=== PATIENT | female | born 1965 | race Caucasian/White ===

== ENCOUNTER 2019-10-31 07:49 | Outpatient (CLI) | payer OTHER, SELFPAY ==
[2019-10-31 10:02] LABS: Free T4 Free Thyroxine 1.36 ng/mL (0.78-2.19)
== END 2019-10-31 07:50 | disposition home or self-care (01) ==
PROVIDERS: PCP Obstetrics & Gynecology; Visit Provider Obstetrics & Gynecology
DX: E03.9 Hypothyroidism, unspecified (principal)
CPT/HCPCS: 36415; 84439; 84443

== ENCOUNTER 2019-11-21 13:34 | Outpatient (CLI) | payer OTHER, SELFPAY ==
[2019-11-21 14:50] LABS: Albumin Level 4.6 g/dL (3.5-5.1); Blood Urea Nitrogen 31 mg/dL (7-17); Calcium 9.7 mg/dL (8.4-10.2); Carbon Dioxide 25 mmol/L (22-30); Chloride 105 mmol/L (98-107); Estimated Glomerular Filt Rate 17; Glucose 89 mg/dL (65-105); Phosphorus 4.2 mg/dL (2.5-4.5); Potassium 4.1 mmol/L (3.4-5.0); Sodium 139 mmol/L (137-145)
[2019-11-21 14:51] LABS: Add Urine Microscopic? YES; Appearance Urine Clear (Clear); Bacteria Urine Trace /hpf; Bilirubin Urine Negative (Negative); Blood Urine 3+ (Negative); Color Urine Amber (Yellow); Glucose Urine UA Negative (Negative); Ketones Urine Negative (Negative); Leukocyte Esterase Ur Negative LEU/UL (NEGATIVE); Mucus Urine Rare /lpf; Nitrate Urine Positive (Negative); Protein Urine 1+ mg/dL (Negative); RBC Urine 21-50 /hpf (0-2); Specific Grav Ur 1.013 (1.001-1.035); Squamous Epithelial Cell Urine Few /hpf (Few)
[2019-11-21 15:52] LABS: Creatinine Urine 92.2 mg/dL; Total Protein Urine Random 21 mg/dL
== END 2019-11-21 13:35 | disposition home or self-care (01) ==
PROVIDERS: PCP Obstetrics & Gynecology; Visit Provider Internal Medicine Nephrology
DX: N18.3 Chronic kidney disease, stage 3 (moderate) (principal)
CPT/HCPCS: 36415; 80069; 81001; 82570; 84156

== ENCOUNTER 2019-11-24 10:31 | Emergency (ER) | payer OTHER, SELFPAY ==
--- NOTE | ~2019-11-24 | CT_ITS ---
EXAMINATION: CT abdomen pelvis wo con DATE: 11/24/2019 12:41 INDICATION: Right flank pain TECHNIQUE: Computed tomography (CT) of the abdomen and pelvis was performed without intravenous contr ast. The dose-length product (DLP) was 561.42 mGy-cm. Automated exposure control and iterative recons truction technique were employed. COMPARISON: None FINDINGS: The lung bases are clear. The heart size is normal. The liver, spleen, pancreas, gallbladde r, and adrenal glands are normal. There is moderate atrophy of the left kidney. There is mild right h ydroureteronephrosis continuing to the level of the pelvis. No definite stone or stricture is identif ied. No pathologically enlarged abdominal or pelvic lymph nodes are identified. There is no free intr aperitoneal gas or evidence of bowel obstruction. There is mild lumbar spondylosis. IMPRESSION: 1. Mild right hydroureteronephrosis without definite stone or stricture identified. Finding could ref lect recent passage of a stone. Reviewed, dictated and finalized at location A. IMPRESSION: 1. Mild right hydroureteronephrosis without definite stone or stricture identif ied. Finding could reflect recent passage of a stone.
[2019-11-24 10:49] VITALS: BP 129/88; PULSE 103; RESP 21; TEMP 37.3; O2SAT 100
--- NOTE | 2019-11-24 11:57 | ED.ABDPAIN ---
HPI - Abdominal Pain General Chief Complaint: Abdominal Pain <JOSE Cantu Last Filed: 11/24/19 14:20> Stated Complaint: kidney infection <JOSE Cantu Last Filed: 11/24/19 14:20> Time Seen by Provider: 11/24/19 11:08 <JOSE Cantu Last Filed: 11/24/19 14:20> Source: patient <JOSE Cantu Last Filed: 11/24/19 14:20> Mode of arrival: ambulatory <JOSE Cantu Last Filed: 11/24/19 14:20> Limitations: no limitations <JOSE Cantu Last Filed: 11/24/19 14:20> History of Present Illness HPI narrative: This is a 54-year-old female that presents emergency department for right flank pain x1 week. Reports constant dull pain. Reports she was started on cephalexin by her cupola melter. She has finished this medication. Was also taking phenazopyridine. Did report some mild urinary discomfort initially. This has resolved. Patient has continued to have right flank pain. She talked to her flame cutter who ordered some outpatient labs. Was told when she got the results that she needs to come to the emergency department as her kidney function is worse than normal. Reports only the right kidney functions. Does report her urine has been orange. She is taking Azo though. Denies abdominal pain, nausea, or vomiting. <JOSE Cantu Last Filed: 11/24/19 14:20> Related Data Home Medications: Home Medications Medication Instructions Recorded Confirmed levothyroxine 11/24/19 phenazopyridine 11/24/19 <JOSE Cantu Last Filed: 11/24/19 14:20> Allergies/Adverse Reactions: Allergies Allergy/AdvReac Type Severity Reaction Status Date / Time morphine Allergy Unknown Itching Verified 11/24/19 11:11 <JOSE Cantu Last Filed: 11/24/19 14:20> Review of Systems Review of Systems: Narrative: CONSTITUTIONAL: Denies fever GASTROINTESTINAL: Denies abdominal pain, nausea, vomiting GENITOURINARY: Reports dysuria and hematuria. MUSCULOSKELETAL: Reports back pain <Dari Morrow PA-C - Last Filed: 11/24/19 14:20> All systems reviewed & are unremarkable except as noted in HPI and below <Dari Morrow PA-C - Last Filed: 11/24/19 14:20> PMFSH Past Medical History Medical History: Medical History (Updated 11/24/19 @ 14:19 by Dari Morrow PA-C) History of chronic kidney disease History of hypothyroidism <Dari Morrow PA-C - Last Filed: 11/24/19 14:20> Family History Family History: Family History (Updated 06/12/15 @ 10:07 by DOCTOR UNKNOWN) Other Cerebrovascular accident Family history of kidney disease <Dari Morrow PA-C - Last Filed: 11/24/19 14:20> Social History Social History: Social History Smoking status: Never smoker Alcohol intake: current Gender identity (if verbalized by the patient): Female <Dari Morrow PA-C - Last Filed: 11/24/19 14:20> Exam Narrative: Exam Narrative: GENERAL: Well-appearing, well-nourished, and in no acute distress. HEAD: Normocephalic, atraumatic. EYES: EOMI. CHEST: Clear to auscultation. No respiratory distress. No wheezes rales or rhonchi HEART: Regular rate and rhythm. No murmur heard. Normal peripheral pulses. ABDOMEN: Soft, nontender, nondistended, normal active bowel sounds. Right-sided CVA tenderness EXTREMITIES: Normal range of motion. No edema. SKIN: Warm, dry, no rash. NEURO: No focal deficits. Alert and oriented x3. PSYCH: Normal mood and affect <Dari Morrow PA-C - Last Filed: 11/24/19 14:20> Course Consultations Consultation #1: Spoke with Dr. Iyer about patient and work-up. Since patient is almost return to baseline kidney function she will be given option of admission or discharge home for further hydration and antibiotics <Dari Morrow PA-C - Last Filed: 11/24/19 14:20> Date: 11/24/19 <JOSE Cantu Last Filed: 11/24/19 14:20> Time:
[2019-11-24 12:08] LABS: Basophils Absolute Auto 0.1 K/mm3 (0.0-0.1); Basophils Percent Auto 1.7 % (0.2-1.2); Eosinophils Absolute Auto 0.2 K/mm3 (0-0.3); Eosinophils Percent Auto 4.2 % (0-4.4); Hematocrit 39.4 % (37.0-47.0); Immature Granulocyte Absolute 0.04 K/mm3 (0.00-0.031); Immature Granulocyte Percent A 0.8 % (0-0.5); Lymphocytes Absolute Auto 1.36 K/mm3 (0.9-3.2); Lymphocytes Percent Auto 25.7 % (18.3-44.2); Mean Corpuscular Hemoglobin 30.4 pg (26-34); Mean Corpuscular Volume 92.1 fl (80-100); Mean Platelet Volume 11.4 fl (7.4-10.4); Monocytes Absolute Auto 0.4 K/mm3 (0.1-0.6); Monocytes Percent Auto 7.2 % (2.6-8.5); Neutrophils Absolute Auto 3.2 K/mm3 (1.3-6.7); Neutrophils Percent Auto 60.4 % (45.5-73.1); Platelet Count Result 203 k/mm3 (150-375); Red Blood Count 4.28 M/mm3 (4.2-5.4); Red Cell Distribution Width 12.1 % (11.5-14.5); White Blood Count 5.3 K/mm3 (4.5-10.0)
[2019-11-24 12:15] LABS: Add Urine Microscopic? YES; Appearance Urine Clear (Clear); Bilirubin Urine Negative (Negative); Blood Urine Negative (Negative); Color Urine Yellow (Yellow); Glucose Urine UA Negative (Negative); Ketones Urine Negative (Negative); Leukocyte Esterase Ur Trace LEU/UL (Negative); Mucus Urine Rare /lpf; Nitrate Urine Negative (Negative); Protein Urine 1+ mg/dL (Negative); Specific Grav Ur 1.018 (1.001-1.035); Squamous Epithelial Cell Urine Many /hpf (Few); Transitional Epi Cells Urine Rare /hpf (None Seen); Urobilinogen Urine Negative mg/dL (<2.0)
[2019-11-24 12:18] LABS: Alanine Aminotransferase 22 U/L (4-35); Albumin Level 4.5 g/dL (3.5-5.1); Alkaline Phosphatase 66 U/L (38-126); Aspartate Amino Transferase 33 U/L (14-36); Bilirubin,Total 0.4 mg/dL (0.2-1.3); Blood Urea Nitrogen 25 mg/dL (7-17); Calcium 9.6 mg/dL (8.4-10.2); Carbon Dioxide 25 mmol/L (22-30); Chloride 105 mmol/L (98-107); Estimated CRCL calculation 42 ml/min; Estimated Glomerular Filt Rate 42; Glucose 97 mg/dL (65-105); Lipase 99 U/L (23-300); Potassium 3.9 mmol/L (3.4-5.0); Sodium 138 mmol/L (137-145)
[2019-11-24 12:45] LABS: Lactic Acid Reflex 0.9 mmol/L (0.7-2.1)
[2019-11-24] MEDS: SODIUM CHLORIDE 0.9% IV 1,000 ML 999 ML IV CONT (13:07)
[2019-11-24 13:08] VITALS: BP 138/89; PULSE 66; RESP 18; TEMP 36.2; O2SAT 100
[2019-11-24 14:09] VITALS: BP 126/83; PULSE 63; RESP 14; TEMP 36.4; O2SAT 100
[2019-11-24 14:56] VITALS: BP 114/77; PULSE 61; RESP 16; TEMP 36.2; O2SAT 100
[2019-11-24] MEDS: CIPROFLOXACIN 500 MG TAB PO (15:06)
[2019-11-24 15:09] VITALS: BP 123/83; PULSE 63; RESP 14; O2SAT 99
== END 2019-11-24 15:11 | disposition home or self-care (01) ==
PROVIDERS: Physician Assistant; Emergency Provider General Practice; PCP Internal Medicine Nephrology
DX: N10 Acute pyelonephritis (principal); E86.0 Dehydration; E03.9 Hypothyroidism, unspecified; N18.9 Chronic kidney disease, unspecified
CPT/HCPCS: 36415; 74176; 80053; 81001; 81025; 83605; 83690; 85025; 87077; 87086; 87088; 87186; 96360; 99284; A9270; J7030

== ENCOUNTER 2019-11-28 11:17 | Outpatient (CLI) | payer OTHER, SELFPAY ==
[2019-11-28 11:59] LABS: Hematocrit 38.7 % (37.0-47.0); Hemoglobin 12.6 g/dL (12.0-15.0); Mean Corpuscular HGB Conc 32.6 g/dl (32-36); Mean Corpuscular Hemoglobin 30.3 pg (26-34); Platelet Count Result 229 k/mm3 (150-375); Red Blood Count 4.16 M/mm3 (4.2-5.4); Red Cell Distribution Width 12.2 % (11.5-14.5); White Blood Count 5.4 K/mm3 (4.5-10.0)
[2019-11-28 12:01] LABS: Add Urine Microscopic? NO; Appearance Urine Clear (Clear); Bilirubin Urine Negative (Negative); Blood Urine Negative (Negative); Color Urine Yellow (Yellow); Glucose Urine UA Negative (Negative); Ketones Urine Negative (Negative); Leukocyte Esterase Ur Negative LEU/UL (NEGATIVE); Nitrate Urine Negative (Negative); Protein Urine Negative (Negative); Specific Grav Ur 1.013 (1.001-1.035); Urobilinogen Urine Negative mg/dL (<2.0)
[2019-11-28 12:05] LABS: Creatinine Urine 77.7 mg/dL; Total Protein Urine Random 9 mg/dL
[2019-11-28 12:15] LABS: Albumin Level 4.3 g/dL (3.5-5.1); Anion Gap 9.3 mmol/L (7-16); Blood Urea Nitrogen 19 mg/dL (7-17); Calcium 9.5 mg/dL (8.4-10.2); Carbon Dioxide 27 mmol/L (22-30); Chloride 106 mmol/L (98-107); Estimated Glomerular Filt Rate 42; Glucose 89 mg/dL (65-105); Phosphorus 3.7 mg/dL (2.5-4.5); Potassium 4.3 mmol/L (3.4-5.0); Sodium 138 mmol/L (137-145)
[2019-11-28 12:26] LABS: Parathyroid Intact 47.7 pg/mL (7.5-53.5)
[2019-11-28 12:48] LABS: Vitamin D 25 Hydroxy 40.1 ng/mL
== END 2019-11-28 11:18 | disposition home or self-care (01) ==
LOC: ANHLAB 11:19
PROVIDERS: PCP Internal Medicine Nephrology; Visit Provider Internal Medicine Nephrology
DX: N18.3 Chronic kidney disease, stage 3 (moderate) (principal)
CPT/HCPCS: 36415; 80069; 81003; 82306; 82570; 83970; 84156; 85027

== ENCOUNTER 2019-12-11 11:34 | Outpatient (CLI) | payer OTHER, SELFPAY ==
--- NOTE | ~2019-12-11 | US_ITS ---
EXAMINATION: US retroperitoneal comp DATE: 12/11/2019 12:12 INDICATION: Right hydronephrosis TECHNIQUE: Multiple ultrasound grayscale images of the kidneys were obtained. COMPARISON: Renal ultrasound dated 02/22/2019 and abdomen and pelvis CT dated 11/24/2019 FINDINGS: The right kidney measures 9.1 x 4.9 x 5.2 cm. The left kidney measures 9.2 x 5.2 x 4.4 cm. The kidney s demonstrate normal echogenicity. There is scattered cortical atrophy/scarring at the left kidney. T here is a Bosniak 2, 2.1 x 1.8 x 1.7 cm complex cyst at the upper pole of the left kidney which conta ins a thin internal septation. There is no hydronephrosis in either kidney. No renal stones identifi ed. The bladder is normal. IMPRESSION: 1. Normal right kidney with no hydronephrosis. 2. 2.1 cm Bosniak 2 cyst at the upper pole of the left kidney which demonstrates heterogeneous cortic al atrophy/scarring which may represent sequela of prior infection or infarction. Reviewed, dictated and finalized at location A. IMPRESSION: 1. Normal right kidney with no hydronephrosis. 2. 2.1 cm Bosniak 2 cyst at the upper pole of the left kidney which demonstrate s heterogeneous cortical atrophy/scarring which may represent sequela of prior infection or infarction.
== END 2019-12-11 11:35 | disposition home or self-care (01) ==
LOC: ANHIMG 11:35
PROVIDERS: PCP Internal Medicine Nephrology; Visit Provider Nurse Practitioner Adult Health
DX: N13.30 Unspecified hydronephrosis (principal)
CPT/HCPCS: 76770

== ENCOUNTER 2020-01-22 09:03 | Outpatient (CLI) | payer OTHER, SELFPAY ==
[2020-01-22 09:45] LABS: Hematocrit 40.1 % (37.0-47.0); Hemoglobin 13.2 g/dL (12.0-15.0); Mean Corpuscular HGB Conc 32.9 g/dl (32-36); Mean Corpuscular Hemoglobin 30.4 pg (26-34); Mean Corpuscular Volume 92.4 fl (80-100); Mean Platelet Volume 11.3 fl (7.4-10.4); Platelet Count Result 188 k/mm3 (150-375); Red Blood Count 4.34 M/mm3 (4.2-5.4); Red Cell Distribution Width 12.4 % (11.5-14.5); White Blood Count 5.1 K/mm3 (4.5-10.0)
[2020-01-22 09:58] LABS: Albumin Level 4.3 g/dL (3.5-5.1); Anion Gap 5 mmol/L (8-16); Blood Urea Nitrogen 21 mg/dL (7-17); Calcium 9.4 mg/dL (8.4-10.2); Carbon Dioxide 27 mmol/L (22-30); Chloride 109 mmol/L (98-107); Cholesterol 264 mg/dL (0-200); Estimated Glomerular Filt Rate 57; Glucose 84 mg/dL (65-105); Phosphorus 2.9 mg/dL (2.5-4.5); Potassium 4.3 mmol/L (3.4-5.0); Sodium 141 mmol/L (137-145)
[2020-01-22 10:10] LABS: Parathyroid Intact 43.4 pg/mL (7.5-53.5)
[2020-01-22 10:17] LABS: Total Protein Urine Random 10 mg/dL
[2020-01-22 11:01] LABS: Vitamin D 25 Hydroxy 33.7 ng/mL
== END 2020-01-22 09:04 | disposition home or self-care (01) ==
PROVIDERS: PCP Obstetrics & Gynecology; Referring Provider Obstetrics & Gynecology; Visit Provider Internal Medicine Nephrology
DX: N18.3 Chronic kidney disease, stage 3 (moderate) (principal)
CPT/HCPCS: 36415; 80069; 82306; 82465; 82570; 83970; 84156; 85027

== ENCOUNTER 2020-04-16 17:21 | Outpatient (CLI) | payer OTHER, SELFPAY ==
[2020-04-16 18:11] LABS: Creatinine Urine 153.9 mg/dL; Total Protein Urine Random 10 mg/dL; Ur Ttl Prot Creatinine Ratio 0.06 mg/mg (0-0.20)
[2020-04-16 18:11] LABS: Albumin Level 4.2 g/dL (3.5-5.1); Anion Gap 6 mmol/L (8-16); Blood Urea Nitrogen 26 mg/dL (7-17); Calcium 9.3 mg/dL (8.4-10.2); Carbon Dioxide 31 mmol/L (22-30); Chloride 104 mmol/L (98-107); Estimated Glomerular Filt Rate 57; Glucose 118 mg/dL (65-105); Phosphorus 3.6 mg/dL (2.5-4.5); Potassium 3.7 mmol/L (3.4-5.0); Sodium 141 mmol/L (137-145)
== END 2020-04-16 17:22 | disposition home or self-care (01) ==
PROVIDERS: PCP Obstetrics & Gynecology; Visit Provider Internal Medicine Nephrology
DX: N18.30 Chronic kidney disease, stage 3 unspecified (principal)
CPT/HCPCS: 36415; 80069; 82570; 84156

== ENCOUNTER 2020-05-11 12:26 | Outpatient (CLI) | payer OTHER, SELFPAY ==
--- NOTE | ~2020-05-11 | MM_ITS ---
EXAMINATION: MM screening [facility] BI w christian HISTORY: Screening mammogram TECHNIQUE: Craniocaudal and mediolateral oblique 3-D tomosynthesis images were obtained and synthetic 2-D images were generated. CAD analysis was submitted and interpreted. COMPARISON: 01/18/2019, 06/01/2018, 09/22/2017, 06/06/2017 BREAST PARENCHYMAL COMPOSITION: There are scattered areas of fibroglandular density. FINDINGS: A stable mass of the lower outer left breast is considered benign given the lack of interva l change. There is no evidence of suspicious mass, calcification, or architectural distortion to sugg est malignancy in either breast. There has been no suspicious interval change. IMPRESSION: 1. No mammographic evidence of malignancy. 2. Recommend routine screening mammography in one year. BI-RADS Category 2: Benign finding(s). Reviewed, dictated and finalized at location A. MARKETING COORDINATOR
== END 2020-05-11 12:27 | disposition home or self-care (01) ==
PROVIDERS: PCP Obstetrics & Gynecology; Visit Provider Obstetrics & Gynecology
DX: Z12.31 Encounter for screening mammogram for malignant neoplasm of breast (principal)
CPT/HCPCS: 77063; 77067